=== PATIENT | male | born 1965 | race American Indian/Alaskan Native ===

== ENCOUNTER 2018-01-07 11:25 | Emergency (ER) | payer SELFPAY ==
[2018-01-07 11:32] VITALS: BP 145/95
--- NOTE | 2018-01-07 14:02 | Emergency Department Report ---
ED Lower Extremity HPI - General Chief Complaint: Extremity Injury, Lower Stated Complaint: KNEE PAIN Time Seen by Provider: 01/07/18 12:51 Source: patient Mode of arrival: Ambulatory Limitations: No Limitations - History of Present Illness Initial Comments: Patient presents to the emergency department with chief complaint of right knee pain. Patient states she's had right knee pain for the last month. Patient states that his knee pain started about a month ago after playing with her son. Patient presents with a request to have his knee drained. He states he's had this before with relief of his pain. He was seen at an urgent care about 2 weeks ago and given meloxicam and anti-inflammatory medication but still having the pain and swelling. Patient denies fever, warmth of his knee, or any redness of his knee. MD Complaint: knee injury -: Gradual Injury: Knee: Right Type of Injury: unknown Place: home Severity: moderate Severity scale (0 -10): 5 Improves With: nothing Worsens With: movement Treatments Prior to Arrival: cold therapy, bandage, NSAIDS - Related Data Previous Rx's Medication Instructions Recorded Last Taken Type Acetaminophen/Codeine [Tylenol #3] 1 tab PO Q6H PRN #21 tab 03/11/15 Unknown Rx Ciprofloxacin HCl [Ciprofloxacin 500 mg PO Q12HR #14 tab 03/11/15 Unknown Rx TAB] Tamsulosin [Flomax] 0.4 mg PO QDAY #30 cap 03/11/15 Unknown Rx predniSONE [Deltasone] 20 mg PO QDAY #10 tab 01/07/18 Unknown Rx traMADol [Ultram] 50 mg PO Q6HR PRN #24 tablet 01/07/18 Unknown Rx Allergies Allergy/AdvReac Type Severity Reaction Status Date / Time No Known Allergies Allergy Verified 03/11/15 06:08 ED Review of Systems ROS: Stated complaint: KNEE PAIN Other details as noted in HPI Comment: All other systems reviewed and negative Constitutional: denies: chills, fever Eyes: denies: eye pain, eye discharge, vision change ENT: denies: ear pain, throat pain Respiratory: denies: cough, shortness of breath, wheezing Cardiovascular: denies: chest pain, palpitations Endocrine: no symptoms reported Gastrointestinal: denies: abdominal pain, nausea, diarrhea Genitourinary: denies: urgency, dysuria Musculoskeletal: joint swelling. denies: back pain, arthralgia Skin: denies: rash, lesions Neurological: denies: headache, weakness, paresthesias Psychiatric: denies: anxiety, depression Hematological/Lymphatic: denies: easy bleeding, easy bruising ED Past Medical Hx - Past Medical History Hx Hypertension: Yes (not on med) Additional medical history: recurrent bilateral knee swelling - Surgical History Additional Surgical History: bilateral knee aspiration - Social History Smoking Status: Never Smoker Substance Use Type: None - Medications Home Medications: Home Medications Medication Instructions Recorded Confirmed Last Taken Type Acetaminophen/Codeine [Tylenol #3] 1 tab PO Q6H PRN #21 tab 03/11/15 Unknown Rx Ciprofloxacin HCl [Ciprofloxacin 500 mg PO Q12HR #14 tab 03/11/15 Unknown Rx TAB] Tamsulosin [Flomax] 0.4 mg PO QDAY #30 cap 03/11/15 Unknown Rx predniSONE [Deltasone] 20 mg PO QDAY #10 tab 01/07/18 Unknown Rx traMADol [Ultram] 50 mg PO Q6HR PRN #24 tablet 01/07/18 Unknown Rx ED Physical Exam - General Limitations: No Limitations General appearance: alert, in no apparent distress - Head Head exam: Present: atraumatic, normocephalic - Eye Eye exam: Present: normal appearance, PERRL, EOMI - ENT ENT exam: Present: mucous membranes moist - Neck Neck exam: Present: normal inspection - Respiratory Respiratory exam: Present: normal lung sounds bilaterally. Absent: respiratory distress, wheezes, rales - Cardiovascular Cardiovascular Exam: Present: regular rate, normal rhythm. Absent: systolic murmur, diastolic murmur, rubs, gallop - GI/Abdominal GI/Abdominal exam: Present: soft, normal bowel sounds. Absent: distended, tenderness - Rectal Rectal exam: Present: deferred - Extremities Exam Extremities exam: Present: normal inspection, other (right knee has mild swelling and ttp of the lateral aspect) - Back Exam Back exam: Present: normal inspection - Neurological Exam Neurological exam: Present: alert, oriented X3, CN II-XII intact. Absent: motor sensory deficit - Psychiatric Psychiatric exam: Present: normal affect, normal mood - Skin Skin exam: Present: warm, dry, intact, normal color. Absent: rash ED Course Vital Signs 01/07/18 11:29 Temperature 97.8 F Pulse Rate 65 Respiratory 18 Rate Blood Pressure 145/95 O2 Sat by Pulse 100 Oximetry - Procedure Description Procedures done: Arthrocentesis of the right knee. Patient provide consent. Reason for procedure is fusion of the right knee. Consultations discussed with the patient including nerve damage, infection, pain. Sterile procedure was used which included a sterile field and sterile gloves. Betadine used to clean the knee. A 22-gauge needle was used and emphasized the knee and his lateral aspect with 1% lidocaine. 18-gauge needle was introduced the proximal lateral aspect of the right knee with return of synovial fluid. 25 cc's drained. Patient tolerated procedure well. Had immediate relief of pain. Knee was Leeroy wrapped ED Lower Extremity MDM - Medical Decision Making Discussed results with patient in clinic care which includes follow-up with orthopedic surgeon Critical care attestation.: If time is entered above; I have spent that time in minutes in the direct care of this critically ill patient, excluding procedure time. ED Disposition Clinical Impression: Knee effusion Disposition: DC-01 TO HOME OR SELFCARE Is pt being admited?: No Does the pt Need Aspirin: No Condition: Stable Instructions: Knee Effusion (ED) Additional Instructions: Return if worse Prescriptions: predniSONE [Deltasone] 20 mg PO QDAY #10 tab traMADol [Ultram] 50 mg PO Q6HR PRN #24 tablet PRN Reason: Pain Referrals: PRIMARY CARE, [Primary Care Provider] - 3-5 Days TERRA HALL MD [Staff Physician] - 3-5 Days DIANA KRISHNA MD [Staff Physician] - 3-5 Days Time of Disposition: 15:27
[2018-01-07] MEDS ORDERED: XYLOCAINE 1% 20 mL INFILTRATI ONE (14:39)
--- NOTE | 2018-01-07 14:44 | XRay Report ---
RIGHT KNEE, 3 views: History: Pain. Moderate osteoarthritic changes are identified in the medial compartment and patellofemoral space. Mild osteoarthritic changes in the lateral compartment. No evidence for fracture, bone lesion or osteochondral defect. Calcifications overlie the inferior patellar tendon which probably represents chronic injury. A small joint effusion is identified on the lateral image. IMPRESSION: Osteoarthritis. Small joint effusion. No acute process noted.
== END 2018-01-07 15:54 | disposition home or self-care (01) ==
LOC: ED 11:25
DX: M25.461 Effusion, right knee (principal); I10 Essential (primary) hypertension
CPT/HCPCS: 99283

== ENCOUNTER 2018-12-16 09:50 | Emergency (ER) | payer SELFPAY ==
[2018-12-16 09:56] VITALS: BP 142/91
[2018-12-16] MEDS ORDERED: IBUPROFEN PO ONE (10:19)
[2018-12-16] MEDS ORDERED: TORADOL IM ONE (10:25)
--- NOTE | 2018-12-16 10:25 | Emergency Department Report ---
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 He has a history of hypertension and bilateral knee cartilage injury. He has swelling at the right knee. He has limited range of motion left shoulder due to pain. Pain is 8 out of 10 in severity. He has undergone physical therapy for the cartilage damage in his right knee on previous occasion. He politely requests a prescription for meloxicam. MD Complaint: fall -: Sudden, This morning Fall From: from height (distance) (5 ft) Place Fall Occurred: work Loss of Consciousness: none Prolonged Down Time?: no Symptoms Prior to Fall: none Location: other (right knee left shoulder) Location - Extremities: Left: Shoulder, Right: Knee Severity scale (0 -10): 8 Quality: dull Context: tripped/slipped Associated Symptoms: denies - Related Data Previous Rx's Medication Instructions Recorded Last Taken Type Acetaminophen/Codeine [Tylenol #3] 1 tab PO Q6H PRN #21 tab 03/11/15 Unknown Rx Ciprofloxacin HCl [Ciprofloxacin 500 mg PO Q12HR #14 tab 03/11/15 Unknown Rx TAB] Tamsulosin [Flomax] 0.4 mg PO QDAY #30 cap 03/11/15 Unknown Rx predniSONE [Deltasone] 20 mg PO QDAY #10 tab 01/07/18 Unknown Rx traMADol [Ultram] 50 mg PO Q6HR PRN #24 tablet 01/07/18 Unknown Rx Meloxicam [Mobic] 7.5 mg PO QDAY 14 Days #14 tablet 12/16/18 Unknown Rx Allergies Allergy/AdvReac Type Severity Reaction Status Date / Time No Known Allergies Allergy Verified 12/16/18 09:51 ED Review of Systems ROS: Stated complaint: (L) SHOULDER/(R) KNEE PAIN Other details as noted in HPI Constitutional: denies: fever, malaise Respiratory: denies: shortness of breath Cardiovascular: denies: chest pain Gastrointestinal: denies: abdominal pain, nausea, vomiting Skin: denies: rash, lesions Neurological: denies: headache, numbness, paresthesias ED Past Medical Hx - Past Medical History Previous Medical History?: Yes Hx Hypertension: Yes (not on med) Additional medical history: recurrent bilateral knee swelling - Surgical History Past Surgical History?: Yes Additional Surgical History: bilateral knee aspiration - Social History Smoking Status: Never Smoker - Medications Home Medications: Home Medications Medication Instructions Recorded Confirmed Last Taken Type Acetaminophen/Codeine [Tylenol #3] 1 tab PO Q6H PRN #21 tab 03/11/15 Unknown Rx Ciprofloxacin HCl [Ciprofloxacin 500 mg PO Q12HR #14 tab 03/11/15 Unknown Rx TAB] Tamsulosin [Flomax] 0.4 mg PO QDAY #30 cap 03/11/15 Unknown Rx predniSONE [Deltasone] 20 mg PO QDAY #10 tab 01/07/18 Unknown Rx traMADol [Ultram] 50 mg PO Q6HR PRN #24 tablet 01/07/18 Unknown Rx Meloxicam [Mobic] 7.5 mg PO QDAY 14 Days #14 tablet 12/16/18 Unknown Rx ED Physical Exam - General Limitations: No Limitations General appearance: alert, in no apparent distress - Head Head exam: Present: atraumatic, normocephalic - Eye Eye exam: Present: normal appearance. Absent: scleral icterus - ENT ENT exam: Present: mucous membranes moist - Neck Neck exam: Present: normal inspection, full ROM - Respiratory Respiratory exam: Absent: respiratory distress - Extremities Exam Extremities exam: Present: other (right knee full range of motion stable without laxity small cyst just inferior to the patella left shoulder no tenderness. Range of motion no deformity) - Neurological Exam Neurological exam: Present: alert, oriented X3 - Psychiatric Psychiatric exam: Present: normal affect, normal mood - Skin Skin exam: Present: warm, dry, intact, normal color - Other Other exam information: Both extremities are neurovascularly intact warm normal color fluid motion in both affected extremities. ED Course Vital Signs 12/16/18 12/16/18 09:55 10:30 Temperature 97.9 F Pulse Rate 75 Respiratory 17 17 Rate Blood Pressure 142/91 O2 Sat by Pulse 100 Oximetry ED Medical Decision Making - Radiology Data Radiology results: report reviewed, image reviewed Left shoulder radiographs interpreted by radiology, osteoarthritis Right knee radiographs interpreted by radiology osteoarthritis - Medical Decision Making Left shoulder and right knee pain after fall from his toe truck. Suspect that chronic pain exacerbated by acute injury. No evidence of fracture in the knee. No evidence of fracture in the shoulder. Diagnosis. 1. Right knee sprain 2. Left shoulder sprain 3. Osteoarthritis knee and shoulder I have prescribed 14 days of meloxicam therapy. He understands the risk of renal injury with this medication. I strongly suggest that he obtains a primary care physician. I have also referred him to orthopedic surgeon as well as [facility] [place] [facility] [employer]. Critical care attestation.: If time is entered above; I have spent that time in minutes in the direct care of this critically ill patient, excluding procedure time. ED Disposition Clinical Impression: Sprain of shoulder, left, Right knee sprain, Osteoarthritis Disposition: - TO HOME OR SELFCARE Is pt being admited?: No Does the pt Need Aspirin: No Condition: Stable Instructions: Knee Sprain (ED), Shoulder Sprain (ED) Prescriptions: Meloxicam [Mobic] 7.5 mg PO QDAY 14 Days #14 tablet Referrals: DIANA KRISHNA MD [Staff Physician] - 3-5 Days
[2018-12-16] MEDS ORDERED: TORADOL ONE (10:28)
--- NOTE | 2018-12-16 10:56 | XRay Report ---
Right shoulder, 3 views INDICATION: fall. COMPARISON: None. IMPRESSION: No acute osseous or soft tissue abnormality. Mild osteoarthritic changes are noted at the glenohumeral joint and AC joint. Right knee, 3 views INDICATION: fall. COMPARISON: None. IMPRESSION: No acute osseous or soft tissue abnormality. Moderate osteoarthritic changes are note d in all 3 compartments. Signer Name: Jose Coronado Jr, MD Signed: 12/16/2018 10:51 AM Workstation Name: [id number]
== END 2018-12-16 11:36 | disposition home or self-care (01) ==
LOC: ED 09:50
DX: S43.402A Unspecified sprain of left shoulder joint, initial encounter (principal); S83.91XA Sprain of unspecified site of right knee, initial encounter; M19.90 Unspecified osteoarthritis, unspecified site; I10 Essential (primary) hypertension; W17.89XA Other fall from one level to another, initial encounter; Y93.89 Activity, other specified; Y92.89 Other specified places as the place of occurrence of the external cause; Y99.8 Other external cause status
CPT/HCPCS: 73030; 73562; J1885; 96372